=== PATIENT | female | born 1995 | race Caucasian/White ===

== ENCOUNTER 2016-03-04 17:47 | Emergency (ER) | payer BC ==
[2016-03-04 17:52] VITALS: O2SAT 96
--- NOTE | 2016-03-04 18:09 | EDPHY ---
H & P Stated Complaint: colonoscopy by jeanette for chronic gi issues/now with fever/pain HPI/ROS: CHIEF COMPLAINT: Abdominal pain, nausea, malaise HISTORY OF PRESENT ILLNESS: history of irregular bowel with diarrhea, status post colonoscopy and EGD earlier this morning. Left the hospital open a.m. feeling well. Slept until 5 p.m. and awoke feeling abnormal. She has vague complaints that she just did not feel well, she was nauseated and had diarrhea. No bloody stools. No emesis of any kind. No chest pain or shortness of breath. She does have some jaw pain and headache, that she attributes to EGD. She has no back pain. No urinary complaints. No history or diagnosis of Crohn' s, ulcerative colitis, diverticulosis or Diverticulitis. Symptoms are mild to moderate. They are worse with palpation and movement. Improved at rest. She feels that she is being treated for irritable bowel diarrhea. No other associated complaints or modifying factors. REVIEW OF SYSTEMS: Ten systems reviewed and are negative unless otherwise noted in the HPI EXAMINATION: General Appearance: Alert, no distress Head: normocephalic, atraumatic Eyes: Pupils equal and round, no conjunctival pallor or injection ENT, Mouth: Mucous membranes moist . Uvula midline. No posterior erythema or injury. Neck: Normal inspection, supple, non-tender, no meningismus. Respiratory: Lungs are clear to auscultation . No consolidation, wheezing or rhonchi Cardiovascular: Regular rate and rhythm. Pulses intact distally Gastrointestinal: Abdomen is soft with mild epigastric tenderness. No CVA tenderness.No tympany. No rigidity. Nonacute abdomen. Neurological: A&O, nonfocal, Strength is symmetric in all limbs. Skin: Warm and dry, no rash Extremities: Nontender, Range of motion intact no pedal edema Psychiatric: Mood and affect normal DIFFERENTIAL DIAGNOSES: Including but not limited to: viral syndrome, post anesthesia discomfort, gastritis, enteritis, duodenitis, colitis, perf discuss MDM: 6:18 p.m. generalized malaise with abdominal discomfort, nausea and diarrhea post colonoscopy and EGD. Abdomen is soft with mild tenderness. I do not appreciate acute abdomen, but I have ordered CT scan due to the procedures. She is resting comfortably in no acute distress. She is afebrile and hemodynamically stable. 7:15 p.m. I have re-evaluated the patient. She remains hemodynamically stable. Abdominal pain is stable. Headache is minimally improved with the 1st dose pain medication I will re-dose her. She remains without any neck pain or stiffness. She feels that she actually may have the flu, thus I have ordered a flu test. Labs as far reveal a normal chemistry and the remaining are pending at this time. 8:33 p.m. I re-evaluated the patient. Her headache is better. She remains hemodynamically stable in no acute distress. Her neck remains supple without meningismus. I did offer a lumbar puncture for further workup of a headache, the patient has declined. We discussed risks and benefits alternatives, she is willing to assume the risk. She feels that the headache is related to her general illness that may be viral. I agree with her but did offer a lumbar puncture. She has declined and she wants to be discharged home. I will await the results of urinalysis and discharged home with symptomatic medications. 8:50 PM I have re-evaluated the patient. She remains hemodynamically stable and in no acute distress. Headache has resolved and she is feeling much better over. I have discussed the CT with the on-call GI physician. Dr. Wheat. She has reviewed the Colonoscopy and EGD findings from today, and we have discussed the CT findings from this evening involving the possible enteritis. She She agrees that the patient does not need any further care here and agrees with outpatient management. She would like the patient call the office Monday for follow-up. We discussed return to the emergency department cautions for fever, worsening pain, diarrhea constipation, flank pain, nausea or vomiting. She is comfortable with this and discharged home in stable condition ED Precautions: Worsening pain. Fever. Bloody stools. Bloody emesis. Constipation or diarrhea. SUPERVISION: Patient was evaluated in conjunction with the supervising physician. Please see their note for details. Source: Patient Exam Limitations: No limitations - Personal History LMP (Females 10-55): 1-7 Days Ago Current Tetanus/Diphtheria Vaccine: Yes - Medical/Surgical History Hx Asthma: No Hx Chronic Respiratory Disease: No Hx Diabetes: No Hx Cardiac Disease: No Hx Renal Disease: No Hx Cirrhosis: No Hx Alcoholism: No Hx HIV/AIDS: No Hx Splenectomy or Spleen Trauma: No Other PMH: gi issues - Social History Smoking Status: Never smoked Constitutional: Initial Vital Signs Temperature (C) 99.1 F 03/04/16 17:50 Heart Rate 116 H 03/04/16 17:50 Respiratory Rate 20 03/04/16 17:50 Blood Pressure 111/79 03/04/16 17:50 O2 Sat (%) 96 03/04/16 17:50 O2 Delivery Mode Room Air O2 (L/minute) 2 Allergies/Adverse Reactions: Penicillins Allergy (Verified 03/04/16 17:49) Home Medications: Medication Instructions Recorded Hydrocodone/Acetaminophen 1 - 2 each PO Q4H PRN #20 tablet 03/04/16 [Hydrocodon-Acetaminoph 7.5-325] Junel 1 mg-20 Mcg Tablet 03/04/16 Ondansetron Odt [Zofran Odt 4 mg 4 mg PO Q4 PRN #12 tab 03/04/16 (*)] Medical Decision Making - Data Points Laboratory Results: Laboratory Results 03/04/16 18:04 03/04/16 18:04 03/04/16 03/04/16 03/04/16 20:20 19:30 18:04 WBC 7.21 10^3/uL (3.80-9.50) RBC 4.60 10^6/uL (4.18-5.33) Hgb 15.1 g/dL (12.6-16.3) Hct 43.3 % (38.0-47.0) MCV 94.1 fL (81.5-99.8) MCH 32.8 pg (27.9-34.1) MCHC 34.9 g/dL (32.4-36.7) RDW 12.0 % (11.5-15.2) Plt Count 217 10^3/uL (150-400) MPV 9.7 fL (8.7-11.7) Neut % (Auto) Not Reported Lymph % (Auto) Not Reported [place] % (Auto) Not Reported Eos % (Auto) Not Reported Baso % (Auto) Not Reported Nucleat RBC Rel Count 0.0 % (0.0-0.2) Absolute Neuts (auto) Not Reported Absolute Lymphs (auto) Not Reported Absolute Monos (auto) Not Reported Absolute Eos (auto) Not Reported Absolute Basos (auto) Not Reported Absolute Nucleated RBC 0.00 10^3/uL (0-0.01) Immature Gran % Not Reported Seg Neutrophils % 56 % Band Neutrophils % 10 % Lymphocytes % 25 % Monocytes % 7 % Eosinophils % 2 % Immature Gran # Not Reported Absolute Seg Neuts 4.04 10^/uL (1.70-6.50) Absolute Band Neuts 0.72 H 10^3/uL (0.00-0.70) Absolute Lymphocytes 1.80 10^3/uL (1.00-3.00) Absolute Monocytes 0.50 10^3/uL (0.30-0.80) Absolute Eosinophils 0.14 10^3/uL (0.03-0.40) Atypical Lymphocytes 2+ H Platelet Estimate ADEQUATE (ADEQ) Polychromasia 2+ H Microcytic Cells 1+ H Stomatocytes 1+ H Smear Review By Pending Sodium 139 mEq/L (134-144) Potassium 3.8 mEq/L (3.5-5.2) Chloride 100 mEq/L (97-110) Carbon Dioxide 27 mEq/l (22-31) Anion Gap 12 mEq/L (8-16) BUN 5 L mg/dL (7-23) Creatinine 0.8 mg/dL (0.6-1.0) Estimated GFR > 60 Glucose 97 mg/dL (70-100) Calcium 9.5 mg/dL (8.5-10.4) Total Bilirubin 0.8 mg/dL (0.1-1.4) Conjugated Bilirubin 0.4 mg/dL (0.0-0.5) Unconjugated Bilirubin 0.4 mg/dL (0.0-1.1) AST 39 IU/L (14-46) ALT 47 IU/L (9-52) Alkaline Phosphatase 62 IU/L (38-126) Total Protein 7.5 g/dL (6.3-8.2) Albumin 4.5 g/dL (3.5-5.0) Lipase 63.0 IU/L (23-300) Beta HCG, Qual NEGATIVE Urine Color Pending Urine Appearance Pending Urine pH Pending Ur Specific [place] Pending Urine Protein Pending Urine Ketones Pending Urine Blood Pending Urine Nitrate Pending Urine Bilirubin Pending Urine Urobilinogen Pending Ur Leukocyte Esterase Pending Ur Culture Indicated? Pending Urine Glucose Pending Influenza Typ A,B (DFA) NEGATIVE FOR FLU (NEGATIVE) Medications Given: Discontinued Medications Fentanyl (Sublimaze) 50 mcg IVP EDNOW ONE Stop: 03/04/16 18:15 Last Admin: 03/04/16 18:47 Dose: 50 mcg Fentanyl (Sublimaze) 100 mcg IV EDNOW ONE Stop: 03/04/16 19:13 Last Admin: 03/04/16 19:40 Dose: 100 mcg Sodium Chloride (Ns) 1,000 mls @ 0 mls/hr IV ONCE ONE PRN Reason: Wide Open Stop: 03/04/16 18:15 Last Admin: 03/04/16 18:48 Dose: 1,000 mls Famotidine/Sodium Chloride (Pepcid 20 Mg (Premix)) 50 mls @ 200 mls/hr IV EDNOW ONE Stop: 03/04/16 18:28 Last Admin: 03/04/16 18:47 Dose: 50 mls Ondansetron HCl (Zofran) 4 mg IVP EDNOW ONE Stop: 03/04/16 18:15 Last Admin: 03/04/16 18:48 Dose: 4 mg Departure - Departure Disposition: Home, Routine, Self-Care Clinical Impression: Influenza-like symptoms Headache Qualifiers: Headache type: unspecified Headache chronicity pattern: acute headache Intractability: not intractable Qualifier Code: (R51) Headache Abdominal pain Qualifiers: Abdominal location: generalized Qualifier Code: (R10.84) Generalized abdominal pain Condition: Good Instructions: Viral Syndrome (ED), Acute Abdominal Pain (ED), Chronic Abdominal Pain (ED) Additional Instructions: follow up with GI physician early next week. Return to the ER for worsening pain, fever, chills, constipation or diarrhea. Referrals: [place],. [Primary Care Provider] - As per Instructions Dalia Fortune MD [Medical Doctor] - As per Instructions Prescriptions: Hydrocodone/Acetaminophen [Hydrocodon-Acetaminoph 7.5-325] 1 - 2 each PO Q4H PRN #20 tablet PRN Reason: Pain, Moderate Ondansetron Odt [Zofran Odt 4 mg (*)] 4 mg PO Q4 PRN #12 tab PRN Reason: Nausea/Vomiting, Use 1st
[2016-03-04] MEDS ORDERED: ONDANSETRON 4 MG/2 ML VIAL IVP ONE (18:14)
[2016-03-04] MEDS ORDERED: NS 1,000 ML IV ONE (18:14)
[2016-03-04] MEDS ORDERED: fentaNYL 100 MCG/2 ML INJ IVP ONE (18:14)
[2016-03-04] MEDS ORDERED: FAMOTIDINE 20 MG/NACL 50 ML IV ONE (18:14)
[2016-03-04] MEDS ORDERED: IOPAMIDOL (ISOVUE-300) 100 ML BTL IV ONE (18:35)
[2016-03-04 18:40] LABS: ALANINE AMINOTRANSFERASE 47 IU/L (9-52); ALBUMIN 4.5 g/dL (3.5-5.0); ALKALINE PHOSPHATASE 62 IU/L (38-126); ANION GAP 12 mEq/L (8-16); ASPARTATE AMINOTRANSFERASE 39 IU/L (14-46); BILIRUBIN,TOTAL 0.8 mg/dL (0.1-1.4); BILIRUBIN-CONJUGATED 0.4 mg/dL (0.0-0.5); BILIRUBIN-UNCONJUGATED 0.4 mg/dL (0.0-1.1); CALCIUM 9.5 mg/dL (8.5-10.4); CARBON DIOXIDE 27 mEq/l (22-31); CHLORIDE 100 mEq/L (97-110); CREATININE 0.8 mg/dL (0.6-1.0); GLOMERULAR FILTRATION RATE > 60; GLUCOSE 97 mg/dL (70-100); POTASSIUM 3.8 mEq/L (3.5-5.2); SODIUM 139 mEq/L (134-144); TOTAL PROTEIN 7.5 g/dL (6.3-8.2)
[2016-03-04 18:46] LABS: ADD MORPH? NO; ADD SCAN? YES; FRAGMENT RBC FLAG 0 (0-99); HEMATOCRIT 43.3 % (38.0-47.0); HEMOGLOBIN 15.1 g/dL (12.6-16.3); LEFT SHIFT FLG 0 (0-99); LIPEMIA HEMOLYSIS FLAG 90 (0-99); MEAN CELL HEMOGLOBIN 32.8 pg (27.9-34.1); MEAN CELL HEMOGLOBIN CONCENTR. 34.9 g/dL (32.4-36.7); MEAN CELL VOLUME 94.1 fL (81.5-99.8); MEAN PLATELET VOLUME 9.7 fL (8.7-11.7); PLATELET CLUMPS FLAG 0 (0-99); PLATELET COUNT 217 10^3/uL (150-400)
[2016-03-04 18:47] LABS: ATYPICAL LYMPHOCYTE FLAG 100 (0-99)
[2016-03-04 19:11] LABS: ADD DIFF? YES; SCAN POSITIVE
[2016-03-04] MEDS ORDERED: fentaNYL 100 MCG/2 ML INJ IV ONE (19:12)
[2016-03-04 19:23] LABS: MICROCYTES 1+; PLATELET ESTIMATE ADEQUATE (ADEQ); POLYCHROMASIA 2+; STOMATOCYTES 1+
--- NOTE | 2016-03-04 19:34 | CT ---
CT Scan of the Abdomen and Pelvis With Contrast Indication: Abdominal pain and fever in a 21-year-old female who had a history of upper and lower end oscopy performed earlier today. Technique: Multidetector CT images of the abdomen and pelvis were obtained following the uneventful i ntravenous administration of 90 mL Isovue-300 contrast. No oral contrast was administered. Axial imag es are obtained at 5 mm intervals and reformatted at 1.5 mm thickness. The examination is reviewed on the workstation at multiple window/level settings. Sagittal and coronal reformations are performed. Dose reduction techniques were utilized. Abdomen: Lung bases: Normal. No pleural fluid. No free air or ascites is identified. Liver: Normal. Biliary system: Normal gallbladder. No intra or extrahepatic dilatation. Spleen: Normal. Pancreas: Normal. Adrenals: Normal. Kidneys: No obstruction or solid masses. Abdominal Aorta: No aneurysm. CT Pelvis Findings: A normal appendix is visualized. Minimally dilated loops of small bowel are seen which might reflect enteritis. Osseous structures are intact. The uterus is anteverted. Impression: 1. No free air or free fluid identified to suggest complication from endoscopy. 2. Fluid-filled small bowel loops may reflect enteritis. 3. See above report for additional findings. A report was called to the emergency department at 1920 hours.
[2016-03-04 20:33] LABS: COLOR PALE YELLOW; LEUKOCYTE ESTERASE,URINE NEGATIVE (NEGATIVE); NITRITE,URINE NEGATIVE (NEGATIVE)
[2016-03-04 21:06] VITALS: BP 116/69; PULSE 84; RESP 16; TEMP 98.8
== END 2016-03-04 21:06 | disposition home or self-care (01) ==
DX: R10.84 Generalized abdominal pain (principal); J11.1 Influenza due to unidentified influenza virus with other respiratory manifestations
CPT/HCPCS: 96374; J2405; J3010; Q9967

== ENCOUNTER 2016-03-26 17:58 | Emergency (ER) | payer BC ==
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
[2016-03-26] MEDS ORDERED: IBUPROFEN 600 MG TAB PO ONE (19:37)
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
[2016-03-26 20:12] VITALS: BP 100/70; PULSE 94; RESP 13; TEMP 98.2; O2SAT 100
== END 2016-03-26 20:10 | disposition home or self-care (01) ==
DX: S16.1XXA Strain of muscle, fascia and tendon at neck level, initial encounter (principal); W18.09XA Striking against other object with subsequent fall, initial encounter; Y92.39 Other specified sports and athletic area as the place of occurrence of the external cause; Y93.23 Activity, snow (alpine) (downhill) skiing, snowboarding, sledding, tobogganing and snow tubing
CPT/HCPCS: L0172

== ENCOUNTER 2016-07-23 12:52 | Emergency (ER) | payer OTHER, BC ==
[2016-07-23 12:59] VITALS: TEMP 98.1; O2SAT 97
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
[2016-07-23] MEDS ORDERED: IBUPROFEN 600 MG TAB PO ONE ×2 (14:00→14:03)
[2016-07-23 14:09] VITALS: BP 94/65; PULSE 72; RESP 18
== END 2016-07-23 14:07 | disposition home or self-care (01) ==
DX: S16.1XXA Strain of muscle, fascia and tendon at neck level, initial encounter (principal); S50.02XA Contusion of left elbow, initial encounter; S50.312A Abrasion of left elbow, initial encounter; V49.40XA Driver injured in collision with unspecified motor vehicles in traffic accident, initial encounter; Y92.410 Unspecified street and highway as the place of occurrence of the external cause; Y99.8 Other external cause status; Y93.89 Activity, other specified